=== PATIENT | female | born 1960 | race African-American/Black ===

== ENCOUNTER 2018-07-23 15:00 | Emergency (ER) | payer MEDICAID ==
[~2018-07-23] VITALS: Ht 170.2 cm; Wt 113.6 kg
[~2018-07-23 15:00] MED LIST: LASIX20 MG PO; NORVASC10 MG PO; ROBAXIN500 MG PO
[2018-07-23 15:42] LABS: BASOPHILS 0.3 % (0-2); EOSINOPHILS 0.7 % (0-7); HEMATOCRIT 37.3 % (36.0-48.0); HEMOGLOBIN 11.7 g/dL (12-16); IMMATURE GRANULOCYTES 0.2 % (0-5); MCH 21.6 pg (26.0-34.0); MCHC 31.4 g/dL (31.0-37.0); MCV 68.8 fL (80.0-100.0); MEAN PLATELET VOLUME 11.2 fL (7.4-10.4); MONOCYTES 9.6 % (2-11); NEUTROPHILS 50.2 % (40-80); PLATELET COUNT 205 10x3/uL (130-400); RBC 5.42 10x6/uL (4.00-5.40); RDW 15.6 % (11.5-14.5); WBC 6.2 10x3/uL (4.8-10.8)
[2018-07-23 16:14] LABS: APTT 25.9 SECONDS (22.8-39.4); INR 0.98 (0.85-1.17); PROTIME 12.6 SECONDS (11.6-15.0)
[2018-07-23 16:56] LABS: ALBUMIN 3.1 g/dL (3.4-5.0); ALKALINE PHOSPHATASE 106 U/L (46-116); ALT (SGPT) 19 U/L (10-68); BILIRUBIN - TOTAL 0.47 mg/dL (0.2-1.3); CALC OSMOLALITY 277 mosm/kg (275-300); CALCIUM 8.8 mg/dL (8.5-10.1); CARBON DIOXIDE 28.3 mmol/L (21.0-32.0); CHLORIDE - SERUM 105 mmol/L (98-107); CREATININE - SERUM 0.7 mg/dL (0.6-1.3); GLUCOSE 83 mg/dL (74-106); POTASSIUM - SERUM 4.2 mmol/L (3.5-5.1); PROTEIN - SERUM 7.7 g/dL (6.4-8.2); SODIUM 141 mmol/L (136-145); UREA NITROGEN 8 mg/dL (7-18); eGFR NON AFRICAN AMERICAN > 90 mL/min (90-120)
[2018-07-23 17:09] LABS: CKMB 0.4 U/L (0.0-3.6); CREATINE KINASE 71 UL (21-215); MAGNESIUM - SERUM 1.8 mg/dL (1.8-2.4); TROPONIN-I < 0.017 ng/mL (0.000-0.060)
[2018-07-23] MEDS ORDERED: VALIUM 2 MG TAB2 MG PO (18:59)
== END 2018-07-23 19:11 | disposition home or self-care (01) ==
LOC: D.ER 15:00
PROVIDERS: Emergency Medicine
DX: M79.602 Pain in left arm (principal); S29.011A Strain of muscle and tendon of front wall of thorax, initial encounter; X58.XXXA Exposure to other specified factors, initial encounter; Y93.89 Activity, other specified; Y92.89 Other specified places as the place of occurrence of the external cause; R20.2 Paresthesia of skin; R06.02 Shortness of breath; I10 Essential (primary) hypertension

== ENCOUNTER 2019-02-08 00:16 | Emergency (ER) | payer OTHER ==
[~2019-02-08 00:16] MED LIST changes: +VALIUM 2 MG TAB2 MG PO
[2019-02-08 00:20] VITALS: BMI 40.6
[2019-02-08 01:00] LABS: BASOPHILS 0.2 % (0-2); EOSINOPHILS 1.3 % (0-7); HEMATOCRIT 41.3 % (36.0-48.0); HEMOGLOBIN 13.3 g/dL (12-16); IMMATURE GRANULOCYTES 0.2 % (0-5); LYMPHOCYTES 49.3 % (15-50); MCHC 32.2 g/dL (31.0-37.0); MCV 68.3 fL (80.0-100.0); MONOCYTES 8.7 % (2-11); NEUTROPHILS 40.3 % (40-80); RBC 6.05 10x6/uL (4.00-5.40); RDW 15.2 % (11.5-14.5); WBC 4.5 10x3/uL (4.8-10.8)
[2019-02-08 01:09] LABS: PLATELET COUNT 130 10x3/uL (130-400)
[2019-02-08 01:13] LABS: ALBUMIN 3.7 g/dL (3.4-5.0); ALKALINE PHOSPHATASE 120 U/L (46-116); ALT (SGPT) 26 U/L (10-68); AMYLASE - SERUM 144 U/L (25-115); BILIRUBIN - TOTAL 0.74 mg/dL (0.2-1.3); CALC OSMOLALITY 275 mosm/kg (275-300); CALCIUM 9.5 mg/dL (8.5-10.1); CARBON DIOXIDE 24.1 mmol/L (21.0-32.0); CHLORIDE - SERUM 103 mmol/L (98-107); CREATININE - SERUM 0.8 mg/dL (0.6-1.3); GLUCOSE 79 mg/dL (74-106); LIPASE 317 U/L (73-393); PROTEIN - SERUM 8.7 g/dL (6.4-8.2); SODIUM 139 mmol/L (136-145); UREA NITROGEN 11 mg/dL (7-18); eGFR NON AFRICAN AMERICAN 78 mL/min (90-120)
[2019-02-08 01:14] LABS: TROPONIN-I < 0.017 ng/mL (0.000-0.060)
[2019-02-08 01:25] LABS: APPEARANCE CLEAR (CLEAR); BILIRUBIN NEGATIVE (NEGATIVE); COLOR YELLOW (YELLOW); GLUCOSE NEGATIVE (NEGATIVE); KETONE NEGATIVE (NEGATIVE); NITRITE NEGATIVE (NEGATIVE); PROTEIN NEGATIVE (NEGATIVE); SPECIFIC GRAVITY 1.005 (1.005-1.020); UROBILINOGEN NORMAL (NORMAL)
[2019-02-08] MEDS ORDERED: FLORASTOR250 MG PO (03:34)
[2019-02-08] MEDS ORDERED: ZANTAC300 MG PO (03:34)
[2019-02-08] MEDS ORDERED: LEVSIN/ANASP0.125 MG PO (03:34)
[2019-02-08 04:32] VITALS: BP 126/79
== END 2019-02-08 04:32 | disposition home or self-care (01) ==
LOC: D.ER 00:16
PROVIDERS: Family Medicine
DX: R10.9 Unspecified abdominal pain (principal)